=== PATIENT | male | born 1970 | race Caucasian/White ===

== ENCOUNTER 2018-04-06 21:48 | Inpatient (IN) | payer BC ==
[~2018-04-06] VITALS: Ht 185.4 cm; Wt 92.4 kg
[~2018-04-06 21:48] MED LIST: ASPIR 8181 M1 PO; ATORVASTATIN CA40 MG PO; BRILINTA90 MG PO; CRESTOR10 MG PO; FLUTICASONE PRO16 GM BOTH NARES; LANTUS 3 M100 UNITS/ SC; LANTUS 3 M100 UNITS1 SC; LISINOPRIL10 MG PO; LOPRESSOR25 MG PO; METFORMIN HCL500 MG PO; NITROSTAT0.4 MG SL; NOVOLOG PE100 UNITS/ SC; TRICOR145 MG PO; TRICOR48 MG PO; TRILIPIX135 MG PO; ZOCOR40 MG PO
[2018-04-06 22:24] LABS: HEMATOCRIT 38.8 % (38.0-50.0); HEMOGLOBIN 13.8 G/DL (12.5-16.6); MCH 30.3 PG (29.0-34.0); MCHC 35.6 G/DL (30.0-36.0); MCV 85.1 FL (86-99); PLATELET COUNT 277 K/uL (156-360); RBC DIS.WIDTH-CV 12.4 % (11.8-14.6); RBC DIS.WIDTH-SD 38.2 % (39-53); RED BLOOD COUNT 4.56 M/uL (4.00-5.50); WHITE BLOOD COUNT 9.1 K/uL (4.1-10.2)
[2018-04-06 22:35] LABS: CHLORIDE 103 mEq/L (99-109); POTASSIUM 3.8 mEq/L (3.7-5.4); SODIUM 138 mEq/L (136-147)
[2018-04-06 22:37] LABS: GLUCOSE 141 mg/dL (70-99)
[2018-04-06 22:41] LABS: CREATININE 1.2 mg/dL (0.6-1.3); GFR ESTIMATE (CALCULATED) > 59 mL/min/ (58.99-99999)
[2018-04-06 22:42] LABS: UREA NITROGEN (BUN) 20 mg/dL (9-23)
[2018-04-06 22:49] LABS: TROP-I INTERPRETATION POSITIVE
[2018-04-06 22:55] LABS: TROPONIN-I 10.23 ng/mL (0.0-0.30)
[2018-04-07 00:16] LABS: INTER. NORMALIZED RATIO 1.1
[2018-04-07 00:40] LABS: PTT 27.6 SEC (25-37)
[2018-04-07] MEDS ORDERED: FORTAMET1000 M1 PO (00:46)
[2018-04-07] MEDS ORDERED: MULTI-VITAMIN1 EAC4 PO (00:47)
[2018-04-07 03:00] VITALS: BP 109/69
[2018-04-07 06:24] LABS: HEMATOCRIT 38.1 % (38.0-50.0); HEMOGLOBIN 13.3 G/DL (12.5-16.6); MCH 29.8 PG (29.0-34.0); MCHC 34.9 G/DL (30.0-36.0); MCV 85.4 FL (86-99); PLATELET COUNT 246 K/uL (156-360); RBC DIS.WIDTH-CV 12.6 % (11.8-14.6); RBC DIS.WIDTH-SD 38.9 % (39-53); RED BLOOD COUNT 4.46 M/uL (4.00-5.50); WHITE BLOOD COUNT 7.4 K/uL (4.1-10.2)
[2018-04-07 07:05] LABS: TROP-I INTERPRETATION POSITIVE; TROPONIN-I 11.69 ng/mL (0.0-0.30)
[2018-04-07 08:03] VITALS: BP 127/84
[2018-04-07 11:47] LABS: TROP-I INTERPRETATION POSITIVE; TROPONIN-I 12.06 ng/mL (0.0-0.30)
[2018-04-07 14:49] VITALS: BP 134/80
[2018-04-07 20:16] VITALS: BP 140/86
[2018-04-07 23:50] VITALS: BP 129/83
[2018-04-08 04:15] VITALS: BP 138/72
[2018-04-08 05:41] LABS: BASOPHIL (%) 0.5 % (0-1); EOSINOPHIL (%) 1.6 % (0-5); EOSINOPHIL COUNT 0.1 K/uL (0-0.3); HEMATOCRIT 37.8 % (38.0-50.0); HEMOGLOBIN 13.2 G/DL (12.5-16.6); IMMATURE GRANULOCYTE (%) 0.4 % (0.0-0.7); LYMPHOCYTE (%) 28.2 % (15-42); LYMPHOCYTE COUNT 2.3 K/uL (1.0-2.8); MCH 29.9 PG (29.0-34.0); MCHC 34.9 G/DL (30.0-36.0); MCV 85.5 FL (86-99); MONOCYTE (%) 8.6 % (3-12); MONOCYTE COUNT 0.7 K/uL (0-0.8); NEUTROPHIL (%) 60.7 % (45-76); PLATELET COUNT 243 K/uL (156-360); RBC DIS.WIDTH-CV 12.5 % (11.8-14.6); RBC DIS.WIDTH-SD 38.7 % (39-53); RED BLOOD COUNT 4.42 M/uL (4.00-5.50); WHITE BLOOD COUNT 8.2 K/uL (4.1-10.2)
[2018-04-08 06:19] LABS: CHLORIDE 106 MEQ/L (99-109); CREATININE 1.3 MG/DL (0.6-1.3); GFR ESTIMATE (CALCULATED) > 59 mL/min/ (58.99-99999); GLUCOSE 124 mg/dL (70-99); HDL CHOLESTEROL 23 MG/DL (Desirable>=40); LDL CHOLESTEROL 70 mg/dL (Desirable<100); NON-HDL CHOLESTEROL 113 mg/dL (Desirable<160); SODIUM 138 MEQ/L (136-147); TOTAL CHOLESTEROL 136 mg/dL (Desirable<200); TRIGLYCERIDES 213 MG/DL (Normal: <150); UREA NITROGEN (BUN) 16 mg/dL (9-23)
[2018-04-08 08:23] VITALS: BP 133/81
[2018-04-08 11:02] LABS: HEMOGLOBIN A1c (GLYCOHEMOGLOB) 8.1 % (Below 5.7)
[2018-04-08 11:36] VITALS: BP 129/72
[2018-04-08] MEDS ORDERED: BRILINTA90 MG PO (13:17)
== END 2018-04-08 13:56 | disposition home or self-care (01) | DRG 247 ==
LOC: EME 21:48 → EDOF 04-07 01:22 → 4EAST 04-07 01:22 → ENRESERV 04-07 01:25 → 4EAST 04-07 02:56
PROVIDERS: Emergency Medicine; Hospitalist; Internal Medicine; Internal Medicine Cardiovascular Disease
PROC: B2111ZZ Fluoroscopy of Multiple Coronary Arteries using Low Osmolar Contrast (ICD-10-PCS; principal; 2018-04-07)
PROC: 4A023N7 Measurement of Cardiac Sampling and Pressure, Left Heart, Percutaneous Approach (ICD-10-PCS; principal; 2018-04-07)
PROC: 027034Z Dilation of Coronary Artery, One Artery with Drug-eluting Intraluminal Device, Percutaneous Approach (ICD-10-PCS; principal; 2018-04-07)
PROC: B2151ZZ Fluoroscopy of Left Heart using Low Osmolar Contrast (ICD-10-PCS; principal; 2018-04-07)
DX: I21.4 Non-ST elevation (NSTEMI) myocardial infarction (principal); E11.9 Type 2 diabetes mellitus without complications; I25.10 Atherosclerotic heart disease of native coronary artery without angina pectoris; E78.5 Hyperlipidemia, unspecified; I10 Essential (primary) hypertension; Z95.5 Presence of coronary angioplasty implant and graft; Z79.82 Long term (current) use of aspirin; Z79.4 Long term (current) use of insulin; I25.2 Old myocardial infarction; Z79.899 Other long term (current) drug therapy
CPT/HCPCS: 71046; 80048; 80061; 82948; 83036; 84484; 85025; 85027; 85347; 85610; 85730; 86850; 86900; 86901; 93005; 99281; 99285; C1725; C1760; C1769; C1874; C1887; C1894; J0583; J0690; J1644; J2250; J3010; J7030; J7050